=== PATIENT | male | born 1960 ===

== ENCOUNTER 2023-11-06 08:13 | Outpatient (CLI) | payer OTHER ==
[2023-11-25] MEDS ORDERED: PROAIR RESPICL90 MCG IH (09:19)
[2023-11-25] MEDS ORDERED: AVAPRO300 MG PO (09:19)
[2023-11-25] MEDS ORDERED: FENOFIBRATE150 MG PO (09:19)
== END 2023-11-06 08:14 | disposition home or self-care (01) ==
LOC: SONOGRAMA 08:13
PROVIDERS: ATTEND Pathology Anatomic Pathology
DX: Q89.2 Congenital malformations of other endocrine glands (principal)

== ENCOUNTER 2023-11-27 05:30 | Day surgery (SDC) | payer OTHER ==
[2023-11-25 08:38] LABS: HEMATOCRIT 44.8 % (39.0-48.0); HEMOGLOBIN 15.2 g/dL (13-16.00); MEAN CELL VOLUME 91.7 fL (80.0-100.00); MEAN CORPUSCULAR HEMOGLOBIN 31.1 pg (27.00-32.0); PLATELET COUNT 217 K/uL (150-450); RED BLOOD COUNT 4.89 M/uL (4.00-6.00); RED CELL DISTRIBUTION WIDTH 13.3 % (11.5-14.5)
[2023-11-25 08:45] LABS: PH,URINE 6.5 (5.0-8.0); URINE APPEARANCE Clear; URINE BILIRRUBIN Negative (NEGATIVE); URINE BLOOD Negative; URINE COLOR Yellow; URINE GLUCOSE Negative (NEGATIVE); URINE KETONE Trace (NEGATIVE); URINE LEUKOCYTE Trace; URINE NITRATE Negative; URINE PROTEIN Negative (NEGATIVE)
[2023-11-25 08:47] LABS: URINE EPITHELIAL CELLS 6.4 uL (0.0-38.8); URINE RBC 7.7 uL (0.0-20.8); URINE WBC 11.4 uL (0.0-23.2)
[2023-11-25 08:58] LABS: URINE CAST 0.15 uL (0.0-1.40)
[2023-11-25 09:13] LABS: INR 0.99; PARTIAL THROMBOPLASTIN TIME 30.6 SECONDS (22.0-34.0); PROTHROMBIN TIME 10.4 SECONDS (9.0-11.5)
[2023-11-25 09:14] LABS: ALBUMIN 3.9 gm/dL (3.4-5.0); BILIRUBIN TOTAL 0.77 mg/dL (0.3-1.2); CALCIUM 9.4 mg/dL (8.5-10.1); CREATININE SERUM 0.8 mg/dL (0.70-1.30); GFR 98.27; POTASSIUM 4.19 mEq/L (3.5-5.1); TOTAL PROTEIN 6.9 gm/dL (6.4-8.2)
[~2023-11-27] VITALS: Ht 162.6 cm; Wt 104.3 kg
[~2023-11-27 05:30] MED LIST: AVAPRO300 MG PO; FENOFIBRATE150 MG PO; PROAIR RESPICL90 MCG IH
[2023-11-27] MEDS ORDERED: CEFAZOLIN SODIUM 1,000 MG VIAL ONE (06:31)
[2023-11-27] MEDS ORDERED: DEXAMETHASONE SODIUM PHOSPHATE 4 MG/ML VIAL ONE (07:57)
[2023-11-27] MEDS ORDERED: CEFAZOLIN SODIUM 1,000 MG VIAL IV ONE (08:30)
[2023-11-27] MEDS ORDERED: DEXAMETHASONE SODIUM PHOSPHATE 4 MG/ML VIAL IV ONE (08:30)
== END 2023-11-27 13:30 | disposition home or self-care (01) ==
LOC: CIR.AMB 05:30
PROVIDERS: ATTEND Otolaryngology
DX: Q89.2 Congenital malformations of other endocrine glands (principal); I10 Essential (primary) hypertension; Z88.5 Allergy status to narcotic agent